=== PATIENT | male | born 1965 | race Caucasian/White ===

== ENCOUNTER 2025-09-05 23:19 | Emergency (ER) | payer OTHER ==
[2025-09-05] MEDS ORDERED: NA CHLORIDE 0.9% 1,000 ML ONE (23:32)
[2025-09-06] LABS: ALT/SGPT 38.0 U/L (16-61); AST/SGOT 32.0 U/L (15-37); Albumin 3.5 g/dL (3.4-5.0); Albumin/Globulin Ratio 0.7 (1.1-1.8); Alkaline Phosphatase 138.0 U/L (45-117); Anion Gap 14.2 mEq/L (5.0-15.0); BUN Blood Urea Nitrogen 24.0 mg/dL (7-18); Globulin 4.7 g/dL (2.3-3.5); Glucose Level 127.0 mg/dL (74-106); Lipase 18.0 U/L (13-75); Potassium 3.2 mEq/L (3.5-5.1)
[2025-09-06 00:01] LABS: Sqamous Epithelial None Seen /HPF (None Seen); Urine Culture Reflex Order REFLEXED; Urine Microscopic Reflex YN ORDER UMIC; Urine WBC Clump Occasional /HPF (None Seen)
[2025-09-06 00:02] LABS: Absolute Lymphocytes (CBC) 0.4 K/uL (0.7-4.9); Hematocrit 45.0 % (39.6-49.0); Hemoglobin 14.4 g/dL (13.6-17.9); MCH 27.9 pg (27.0-35.0); MCHC 32.1 g/dL (32.0-36.0); MCV 87.1 fL (80-100); MPV 8.7 fL (7.6-11.3); Nucleated RBC Absolute Count 0.0 (0-0); Nucleated Red Blood Cells % 0.0 % (0-0); RBC Red Blood Cell Count 5.17 M/uL (4.33-5.43); White Blood Count 18.00 thou/uL (4.3-10.9)
[2025-09-06 01:25] LABS: Blood Morphology Comment NOT SEEN (NOT SEEN); Differential Total Cells Count 100; Segmented Neutrophils 76 % (40-80)
[2025-09-06] MEDS ORDERED: NA CHLORIDE 0.9% 1,000 ML ONE (01:52)
[2025-09-06] MEDS ORDERED: CEFTRIAXONE 1000 MG/VIAL ONE (01:52)
[2025-09-06] MEDS ORDERED: KCL 20 MEQ/100 mL IVPB 100 ML IV ONE (01:52)
--- NOTE | 2025-09-06 04:53 | ER ---
Nurse's Notes [facility] Name: Vamsi Louis Age: 60 yrs Sex: Male : 1965 Arrival Date: 09/05/2025 Time: 23:19 Bed 6 Private MD: Diagnosis: Pyelonephritis acute;Acute urinary retention, agitation requiring sedation Presentation: 09/05 23:24 Chief complaint: EMS states: Pt arrived to the ED with complaints of extreme pain after kd3 pulling out his own Zamudio catheter yesterday at 0300 am. Pt is screaming in pain and is uncooperative with attempt to replace Zamudio catheter. Pt is alert and oriented x 4. Coronavirus screen: unknown. Ebola Screen: No symptoms or risks identified at this time. Initial Sepsis Screen: Does the patient meet any 2 criteria? No. Patient's initial sepsis screen is negative. Does the patient have a suspected source of infection? No. Patient's initial sepsis screen is negative. Risk Assessment: Do you want to hurt yourself or someone else? Patient reports no desire to harm self or others. Onset of symptoms was September 05, 2025. 23:24 Method Of Arrival: EMS: [facility] kd3 23:24 Acuity: BRENDA 3 kd3 Triage Assessment: 23:26 General: Appears distressed, Behavior is anxious, uncooperative. Pain: Complains of kd3 pain in suprapubic area and groin. Historical: - Allergies: 23:26 PENICILLINS; kd3 - PMHx: 23:26 BPH; Hypertensive disorder; kd3 - Immunization history:: Adult Immunizations up to date. - Infectious Disease History:: Denies. - Social history:: Smoking status: unknown. - Family history:: not pertinent. Screenin:26 [facility] ED Fall Risk Assessment (Adult) History of falling in the last 3 months, kd3 including since admission No falls in past 3 months (0 pts) Confusion or Disorientation No (0 pts) Intoxicated or Sedated No (0 pts) Impaired Gait No (0 pts) Mobility Assist Device Used No (0 pt) Altered Elimination No (0 pt) Score/Fall Risk Level 0 - 2 = Low Risk Maintained a safe environment. Abuse screen: Denies threats or abuse. Denies injuries from another. Nutritional screening: No deficits noted. Tuberculosis screening: No symptoms or risk factors identified. Assessment: 10/21 02:04 General: Appears in no apparent distress. Behavior is calm, cooperative. Neuro: Level kd3 of Consciousness is awake, alert, obeys commands, Oriented to person, place, time, situation. Cardiovascular: Capillary refill < 3 seconds Patient's skin is warm and dry. Respiratory: Airway is patent Trachea midline Respiratory effort is even, unlabored, Respiratory pattern is regular, symmetrical. 02:53 Reassessment: Patient appears in no apparent distress at this time. No changes from vc1 previously documented assessment. Patient and/or family updated on plan of care and expected duration. Pain level reassessed. Patient is alert, oriented x 3, equal unlabored respirations, skin warm/dry/pink. 04:08 Reassessment: No changes from previously documented assessment. Patient and/or family kd3 updated on plan of care and expected duration. Pain level reassessed. Patient is alert, oriented x 3, equal unlabored respirations, skin warm/dry/pink. Patient states feeling better. Patient states symptoms have improved. 04:17 General: Appears in no apparent distress. Behavior is calm, cooperative. Neuro: Level kd3 of Consciousness is awake, alert, obeys commands, Oriented to person, place, time, situation. Cardiovascular: Capillary refill < 3 seconds Patient's skin is warm and dry. Respiratory: Airway is patent Trachea midline Respiratory effort is even, unlabored, Respiratory pattern is regular, symmetrical. 04:18 General: Attempted to call pt's ride home. pt's friend did not answer. . kd3 04:35 General: This Rn spoke to pt's friend Bryce who states he will come get him. Pt was kd3 notified. . 05:17 General: Pt assisted to the vehicle with wheel chair and placed in the vehicle with his kd3 friend. . Vital Signs: 09/05 23:42 BP 149 / 88; Pulse 104; Resp 16; Temp 98.2(O); Pulse Ox 96% on R/A; kd3 09/06 02:04 BP 148 / 90; Pulse 90; Resp 16; Pulse Ox 96% on R/A; kd3 02:45 BP 153 / 99; Pulse 89; Resp 25; Pulse Ox 99% ; vc1 04:08 BP 185 / 112; Pulse 86; Resp 20; Pulse Ox 95% on R/A; kd3 04:17 BP 174 / 108; Pulse 85; Resp 16; Pulse Ox 99% on R/A; kd3 04:59 BP 169 / 100; Pulse 89; Resp 19; Pulse Ox 98% on R/A; kd3 ED Course: 09/05 23:21 Patient arrived in ED. rv1 23:22 Chance Vila MD is Attending Physician. sp4 23:24 Cayla Boone, ERIC is Primary Nurse. kd3 23:26 Triage completed. kd3 23:26 Arm band placed on right wrist. kd3 23:30 No provider procedures requiring assistance completed. Inserted saline lock: 18 gauge kd3 in left forearm, using aseptic technique. Blood collected. Flushed with 10 mL NS. 23:31 CBC with Diff Sent. kd3 23:31 CMP Sent. kd3 23:31 Lipase Sent. kd3 23:41 CBC with Diff Sent. kd3 23:41 CMP Sent. kd3 23:41 Lipase Sent. kd3 23:44 Patient has correct armband on for positive identification. Provided Education on: kd3 Zamudio . 09/06 04:52 Tobin Rodgers MD is Referral Physician. sp4 05:18 IV discontinued, intact, bleeding controlled, No redness/swelling at site. Pressure kd3 dressing applied. Administered Medications: 09/05 23:24 Drug: LORazepam IM 4 mg IM once Route: IM; Site: left ventrogluteal; kd3 23:31 Drug: Geodon IM 40 mg IM once Route: IM; Site: right vastus lateralis; kd3 23:41 Drug: NS 0.9% IV 1000 ml IV at 1000 ml once; to be given as a bolus over 60 minutes kd3 Route: IV; Rate: 1000 ml; Site: left forearm; 09/06 02:03 Drug: Rocephin - Rocephin (cefTRIAXone) IVPB 1 grams IVPB once over 30 mins; (mix in 50 kd3 mL NS) Route: IVPB; Infused Over: 30 mins; Site: left forearm; 02:03 Drug: NS 0.9% IV 1000 ml IV at 1000 ml once; to be given as a bolus over 60 minutes kd3 Route: IV; Rate: 1000 ml; Site: left forearm; 02:03 Drug: Potassium Chloride IV 20 mEq IV at calculated rate once; administer over 1-2 kd3 hours Route: IV; Rate: calculated rate; Site: left forearm; Medication: 09/05 23:27 VIS not applicable for this client. kd3 Outcome: 09/06 04:53 Discharge ordered by . sp4 05:18 Discharged to home via wheelchair, kd3 05:18 Condition: stable 05:18 Discharge instructions given to patient, friend, Instructed on discharge instructions, follow up and referral plans. medication usage, Demonstrated understanding of instructions, follow-up care, medications, Prescriptions given X 1, 05:18 Patient left the ED. kd3 Signatures: Cayla Boone RN RN kd3 Eirka Orellana RN RN vc1 Luzmaria Painter1 Chance Vila MD MD sp4
--- NOTE | 2025-09-06 04:53 | EDPHYS ---
Physician Documentation [facility] Name: Vamsi Louis Age: 60 yrs Sex: Male : 1965 Arrival Date: 09/05/2025 Time: 23:19 Bed 6 Private MD: ED Physician Chance Vila HPI: 09/05 23:22 This 60 yrs old Male presents to ER via Unassigned with complaints of sp4 agitation . 09/06 20:16 60-year-old male presents with complaint of agitation. Patient reports severe pain in sp4 his bladder. EMS states patient pulled his catheter out yesterday and then developed severe pain in the bladder causing agitation and discomfort. Patient uncooperative on arrival writhing around in pain not allowing physical examination or Zamudio catheter placement. Patient had to be given Ativan and Geodon on arrival to assist with moderate to severe agitation and uncooperative behavior.. Historical: - Allergies: 09/05 23:26 PENICILLINS; kd3 - PMHx: 23:26 BPH; Hypertensive disorder; kd3 - Immunization history:: Adult Immunizations up to date. - Infectious Disease History:: Denies. - Social history:: Smoking status: unknown. - Family history:: not pertinent. ROS: 09/06 20:16 Constitutional: Negative for fever, chills, and weight loss . Positive for bladder sp4 pain and positive for agitation and restlessness. All other systems are negative, Exam: 20:16 Constitutional: Thin appearing male, moderate to severe agitation, screaming at the sp4 top of his lungs, writhing around in pain, uncooperative with exam or treatment Head/Face: Normocephalic, atraumatic. Eyes: Pupils equal round and reactive to light, extra-ocular motions intact. Lids and lashes normal. Conjunctiva and sclera are not injected. Cornea within normal limits. Periorbital areas with no swelling, redness, or edema. ENT: Nares patent. No nasal discharge, no septal abnormalities noted. Tympanic membranes are normal and external auditory canals are clear. Oropharynx with no redness, swelling, or masses, exudates, or evidence of obstruction, uvula midline. Mucous membranes moist. Neck: Trachea midline, no thyromegaly or masses palpated, and no cervical lymphadenopathy. Supple, full range of motion without nuchal rigidity, or vertebral point tenderness. Chest/axilla: Normal chest wall appearance and motion. Nontender with no deformity. No lesions are appreciated. Cardiovascular: Regular rate and rhythm , intact peripheral pulse Respiratory: Lungs have equal breath sounds bilaterally, Abdomen/GI: Soft, with normal bowel sounds. No distension or tympany. No guarding or rebound. No evidence of tenderness throughout. Back: No spinal tenderness. No costovertebral tenderness. Male : Normal genitalia with no discharge or lesions. Patient is circumcised male, no signs of bleeding from urethra. Skin: Warm, dry with normal turgor. Normal color with no rashes, no lesions, and no evidence of cellulitis. MS/ Extremity: Pulses equal, no cyanosis. Neurovascular intact. Full, normal range of motion. Neuro: Awake and alert, highly agitated and restless, screaming in pain, not able to cooperate, grossly no lateralizing deficits Vital Signs: 09/05 23:42 BP 149 / 88; Pulse 104; Resp 16; Temp 98.2(O); Pulse Ox 96% on R/A; kd3 09/06 02:04 BP 148 / 90; Pulse 90; Resp 16; Pulse Ox 96% on R/A; kd3 02:45 BP 153 / 99; Pulse 89; Resp 25; Pulse Ox 99% ; vc1 04:08 BP 185 / 112; Pulse 86; Resp 20; Pulse Ox 95% on R/A; kd3 04:17 BP 174 / 108; Pulse 85; Resp 16; Pulse Ox 99% on R/A; kd3 04:59 BP 169 / 100; Pulse 89; Resp 19; Pulse Ox 98% on R/A; kd3 Procedures: 20:16 Zamudio cath inserted by myself - 18 Fr. Urine output = 1000 ml's. Patient tolerated sp4 well. Zamudio catheter was placed by me personally after patient was given Geodon and Ativan for severe agitation. . MDM: 09/05 23:24 Medical Screening Exam initiated sp4 09/06 20:21 Differential diagnosis: nonspecific abdominal pain, UTI, urinary retention, Zamudio sp4 catheter problem, prostatitis, urethritis. Data reviewed: vital signs, nurses notes, lab test result(s), CBC, electrolytes, hepatic panel. 20:21 ED course: Patient had to be sedated for moderate to severe agitation uncooperative sp4 behavior. Patient was given total of 40 mg IM Geodon and 4 mg of IM lorazepam. Critical care billed secondary to the monitoring after sedation for severe agitation and uncooperative behavior. After agitation improved patient was discharged in improved condition.. 09/05 23:23 Order name: UA Rfx Aj Cult if indicated; Complete Time: 01:48 sp4 09/05 23:23 Order name: CBC with Diff; Complete Time: 01:48 sp4 09/05 23:23 Order name: CMP; Complete Time: 01:48 sp4 09/05 23:23 Order name: Lipase; Complete Time: 01:48 sp4 09/06 00:06 Order name: Urine Culture EDMS 09/06 00:08 Order name: Manual Differential; Complete Time: 01:48 EDMS 09/05 23:23 Order name: Zamudio; Complete Time: 23:31 sp4 09/05 23:23 Order name: IV Saline Lock; Complete Time: 23:31 sp4 09/05 23:23 Order name: Labs collected and sent; Complete Time: 23:31 sp4 09/06 01:48 Order name: Leg Bag; Complete Time: 04:34 sp4 Administered Medications: 09/05 23:24 Drug: LORazepam IM 4 mg IM once Route: IM; Site: left ventrogluteal; kd3 23:31 Drug: Geodon IM 40 mg IM once Route: IM; Site: right vastus lateralis; kd3 23:41 Drug: NS 0.9% IV 1000 ml IV at 1000 ml once; to be given as a bolus over 60 minutes kd3 Route: IV; Rate: 1000 ml; Site: left forearm; 09/06 02:03 Drug: Rocephin - Rocephin (cefTRIAXone) IVPB 1 grams IVPB once over 30 mins; (mix in 50 kd3 mL NS) Route: IVPB; Infused Over: 30 mins; Site: left forearm; 02:03 Drug: NS 0.9% IV 1000 ml IV at 1000 ml once; to be given as a bolus over 60 minutes kd3 Route: IV; Rate: 1000 ml; Site: left forearm; 02:03 Drug: Potassium Chloride IV 20 mEq IV at calculated rate once; administer over 1-2 kd3 hours Route: IV; Rate: calculated rate; Site: left forearm; Disposition: 20:21 Chart complete. sp4 Disposition Summary: 09/06/25 04:53 Discharge Ordered Notes: Location: Home sp4 Problem: new sp4 Symptoms: have improved sp4 Condition: Stable sp4 Diagnosis - Pyelonephritis acute sp4 - Acute urinary retention, agitation requiring sedation sp4 Followup: sp4 - With: Tobin Rodgers MD - When: 7 - 10 days - Reason: Recheck today's complaints Discharge Instructions: - Discharge Summary Sheet sp4 - Pyelonephritis, Adult, [id number] sp4 Forms: - Patient Portal Instructions sp4 Prescriptions: - cefdinir 300 mg Oral capsule - take 1 capsule ORAL route every 12 hours for 10 days; 20 capsule; Refills: 0, sp4 Product Selection Permitted - Pyridium 200 mg Oral Tablet - take 1 tablet ORAL route every 8 hours for 3 days; 9 tablet; Refills: 0, sp4 Product Selection Permitted Critical care time excluding procedures: 20:21 Critical care time: Bedside Care: 36 minutes, Consultation: 12 minutes, Family sp4 Intervention: 12 minutes. Total time: 60 minutes Signatures: Dispatcher [employer] Cayla Lew RN RN kd3 Chance Vila MD MD sp4
[2025-09-06 11:40] VITALS: TEMP 98.2
[2025-09-06 11:47] VITALS: BP 169/100; O2SAT 98
== END 2025-09-06 05:18 | disposition home or self-care (01) ==
LOC: ER 23:19
DX: N10 Acute pyelonephritis (principal); R45.1 Restlessness and agitation
CPT/HCPCS: 87088; 85025; 81001; 87086; 36415; 83690; 80053; 51702; 96375; 96372; 96374; 99284; J3480; J7030 ×2; J0696

== ENCOUNTER 2025-09-16 16:00 | Emergency (ER) | payer OTHER ==
--- NOTE | 2025-09-16 16:27 | ER ---
Nurse's Notes [facility] Name: Vamsi Louis Age: 60 yrs Sex: Male : 1965 Arrival Date: 09/16/2025 Time: 16:00 Bed 19 Private MD: Diagnosis: Mechanical complication of urinary (indwelling) catheter Presentation: 09/16 16:00 Chief complaint: Patient states: C/O lower abdominal/penile pain. patient states that ar8 his rudd fell out at 1030 due to balloon deflating, he has not voided since then. 16:00 Coronavirus screen: At this time, the client does not indicate any symptoms associated ar8 with coronavirus-19. Ebola Screen: No symptoms or risks identified at this time. Initial Sepsis Screen: Does the patient meet any 2 criteria? No. Patient's initial sepsis screen is negative. Does the patient have a suspected source of infection? No. Patient's initial sepsis screen is negative. Risk Assessment: Do you want to hurt yourself or someone else? Patient reports no desire to harm self or others. Onset of symptoms was September 16, 2025. 16:00 Method Of Arrival: EMS: [facility] ar8 16:00 Acuity: BRENDA 4 ar8 Triage Assessment: 16:05 General: Appears uncomfortable, Behavior is cooperative, restless. Pain: Complains of ar8 pain in suprapubic area and groin Pain currently is 10 out of 10 on a pain scale. Neuro: Level of Consciousness is awake, alert, obeys commands, Oriented to person, place, time, situation. Cardiovascular: Patient's skin is warm and dry. Respiratory: Airway is patent Respiratory effort is even, unlabored, Respiratory pattern is regular, symmetrical. GI: No signs and/or symptoms were reported involving the gastrointestinal system. : Reports inability to void, since 1030 pain in suprapubic area. Derm: No signs and/or symptoms reported regarding the dermatologic system. Historical: - Allergies: 16:05 PENICILLINS; ar8 - PMHx: 16:05 BPH; Hypertensive disorder; ar8 - Immunization history:: Adult Immunizations up to date. - Infectious Disease History:: Denies. - Social history:: Smoking status: Patient reports the use of cigarette tobacco products, smokes one-half pack cigarettes per day. Screenin:07 [facility] ED Fall Risk Assessment (Adult) History of falling in the last 3 months, ar8 including since admission No falls in past 3 months (0 pts) Confusion or Disorientation No (0 pts) Intoxicated or Sedated No (0 pts) Impaired Gait No (0 pts) Mobility Assist Device Used No (0 pt) Altered Elimination No (0 pt) Score/Fall Risk Level 0 - 2 = Low Risk Oriented to surroundings, Maintained a safe environment. Abuse screen: Denies threats or abuse. Nutritional screening: No deficits noted. Tuberculosis screening: No symptoms or risk factors identified. Assessment: 16:07 Reassessment: See triage assessment. ar8 Vital Signs: 16:00 BP 168 / 90; Pulse 90; Resp 20; Temp 98; Pulse Ox 98% on R/A; Weight 68.04 kg; Height 6 ar8 ft. 0 in. ; Pain 10/10; 16:25 BP 134 / 81; Pulse 87; Resp 20; Pulse Ox 100% ; Pain 1/10; ar8 16:00 Body Mass Index 20.34 (68.04 kg, 182.88 cm) ar8 16:00 Pain Scale: Adult ar8 16:25 Pain Scale: Adult ar8 ED Course: 16:00 Bed in low position. Call light in reach. Side rails up X2. ar8 16:00 Provided Education on: plan of care. Pulse ox on. NIBP on. ar8 16:00 No provider procedures requiring assistance completed. ar8 16:03 Patient arrived in ED. ar8 16:03 Tad Gill, RN is Primary Nurse. ar8 16:05 Triage completed. ar8 16:05 Mike Ely FNP-C is PHCP. dr5 16:05 Bro Bill MD is Attending Physician. dr5 16:05 Arm band placed on right wrist. ar8 16:20 Bladder scan completed. Bladder scan performed by ERP. \R\650ml. ar8 16:23 Rudd cath inserted, using sterile technique, [address], balloon inflated, to ar8 gravity drainage, urine specimen collected. Patient tolerated well. 16:24 UA Rfx Aj Cult if indicated Sent. ar8 16:38 Patient did not have IV access during this emergency room visit. ar8 Administered Medications: No medications were administered Medication: 16:07 VIS not applicable for this client. ar8 Intake: 16:38 PO: 0ml; Total: 0ml. ar8 Output: 16:38 Urine: 700ml (Rudd); Total: 700ml. ar8 Outcome: 16:27 Discharge ordered by . dr5 16:38 Discharged to home ambulatory, ar8 16:38 Condition: stable 16:38 Discharge instructions given to patient, Instructed on discharge instructions, follow up and referral plans. Demonstrated understanding of instructions, follow-up care, 16:39 Patient left the ED. ar8 Signatures: Mike Ely, ACCOUNT GENERAL MANAGER-C ACCOUNT GENERAL MANAGER-Cdr5 Tad Gill, RN RN ar8
--- NOTE | 2025-09-16 16:27 | EDPHYS ---
Physician Documentation [facility] Name: Vamsi Louis Age: 60 yrs Sex: Male : 1965 Arrival Date: 09/16/2025 Time: 16:00 Bed 19 Private MD: ED Physician Bro Bill HPI: 09/16 16:16 This 60 yrs old Male presents to ER via EMS with complaints of urinary dr5 retention. 16:16 Onset: The symptoms/episode began/occurred acutely. Patient is a 60-year-old male with dr5 BPH and hypertension with a chronic Zamudio for enlarged prostate coming in with urinary retention after Zamudio catheter balloon mechanically deflated and Zamudio was removed and patient hasn't been able to void. Patient reports he called multiple medical supply stores and did not have extra Zamudio bag. Patient denies back pain, fever, testicular pain, penile pain. Historical: - Allergies: 16:05 PENICILLINS; ar8 - PMHx: 16:05 BPH; Hypertensive disorder; ar8 - Immunization history:: Adult Immunizations up to date. - Infectious Disease History:: Denies. - Social history:: Smoking status: Patient reports the use of cigarette tobacco products, smokes one-half pack cigarettes per day. ROS: 16:16 Constitutional: as per hpi dr5 Exam: 16:16 Constitutional: This is a well developed, well nourished patient who is awake, alert, dr5 and in no acute distress. Head/Face: Normocephalic, atraumatic. Eyes: Pupils equal round and reactive to light, extra-ocular motions intact. Lids and lashes normal. Conjunctiva and sclera are non-icteric and not injected. Cornea within normal limits. Periorbital areas with no swelling, redness, or edema. ENT: Nares patent. No nasal discharge, no septal abnormalities noted. Tympanic membranes are normal and external auditory canals are clear. Oropharynx with no redness, swelling, or masses, exudates, or evidence of obstruction, uvula midline. Mucous membranes moist. Chest/axilla: Normal chest wall appearance and motion. Nontender with no deformity. No lesions are appreciated. Cardiovascular: Regular rate and rhythm with a normal S1 and S2. Normal PMI, no JVD. No pulse deficits. Respiratory: Lungs have equal breath sounds bilaterally, clear to auscultation. No rales, rhonchi or wheezes noted. No increased work of breathing, no retractions or nasal flaring. Back: No spinal tenderness. No costovertebral tenderness. Full range of motion. Skin: Warm, dry with normal turgor. Normal color with no rashes, no lesions, and no evidence of cellulitis. MS/ Extremity: Pulses equal, no cyanosis. Neurovascular intact. Full, normal range of motion. Neuro: Awake and alert, GCS 15, oriented to person, place, time, and situation. Cranial nerves II-XII grossly intact. Motor strength 5/5 in all extremities. Sensory grossly intact. Cerebellar exam normal. Normal gait. 16:16 Abdomen/GI: Inspection: distension, that is moderate, in the suprapubic area, Palpation: severe abdominal tenderness, in the suprapubic area, Vital Signs: 16:00 BP 168 / 90; Pulse 90; Resp 20; Temp 98; Pulse Ox 98% on R/A; Weight 68.04 kg; Height 6 ar8 ft. 0 in. ; Pain 10/10; 16:25 BP 134 / 81; Pulse 87; Resp 20; Pulse Ox 100% ; Pain 1/10; ar8 16:00 Body Mass Index 20.34 (68.04 kg, 182.88 cm) ar8 16:00 Pain Scale: Adult ar8 16:25 Pain Scale: Adult ar8 Procedures: 16:14 Ultrasound: performed by the emergency department physician, Bladder Scanner showed dr5 approximately 700cc . MDM: 16:05 Medical Screening Exam initiated dr5 16:30 Differential Diagnosis UTI, mechanical malfunction of Zamudio catheter, BPH. Data dr5 reviewed: vital signs, nurses notes, lab test result(s), urinalysis. Consideration of Admission/Observation Escalation of care including admission/observation considered. Escalation considered patient found to be febrile, CVA tenderness, or UTI. I considered the following discharge prescriptions or medication management in the emergency department I discussed and recommended Over The Counter medications, Medications were administered in the Emergency Department. See MAR. Care significantly affected by the following chronic conditions: BPH, hypertension. Care significantly affected by the following Social Determinants of Health: Poor access to healthcare and/or lack of insurance, Poor access to transportation, Problems related to employment. Counseling: I had a detailed discussion with the patient and/or guardian regarding the historical points, exam findings, and any diagnostic results supporting the discharge/admit diagnosis, the presence of at least one elevated blood pressure reading (>120/80) during this emergency department visit, lab results, the need for outpatient follow up, for definitive care, a family practitioner, to return to the emergency department if symptoms worsen or persist or if there are any questions or concerns that arise at home. Special discussion: I discussed with the patient/guardian in detail that at this point there is no indication for admission to the hospital. It is understood, however, that if the symptoms persist or worsen the patient needs to return immediately for re-evaluation. Based on the history and exam findings, there is no indication for further emergent testing or inpatient evaluation. I discussed with the patient/guardian the need to see the primary care provider for further evaluation of the symptoms. ED course: Zamudio catheter replaced with clear urine return approximately 700 mL and resolution of abdominal pain. Reassessment of abdominal exam revealed nondistended and nontender abdomen. UA Normal. All questions answered. Stricter precautions given. 09/16 16:13 Order name: UA Rfx Aj Cult if indicated; Complete Time: 16:29 dr5 09/16 16:13 Order name: Zamudio; Complete Time: 16:24 dr5 09/16 16:13 Order name: Bladder Scanner; Complete Time: 16:24 dr5 Administered Medications: No medications were administered Disposition: 17:11 Co-signature as Attending Physician, Bro Bill MD I reviewed the patient's care rn provided by the Advanced Practice Provider and agree with the diagnosis and treatment plan. Disposition Summary: 09/16/25 16:27 Discharge Ordered Notes: Location: Home dr5 Condition: Stable dr5 Diagnosis - Mechanical complication of urinary (indwelling) catheter dr5 Followup: dr5 - With: Emergency Department - When: As needed - Reason: Worsening of condition Followup: dr5 - With: Private Physician - When: 1 - 2 days - Reason: Recheck today's complaints, Continuance of care, Re-evaluation by your physician Discharge Instructions: - Discharge Summary Sheet dr5 - Indwelling Urinary Catheter Insertion, Care After dr5 Forms: - Medication Reconciliation Form dr5 - Antibiotic Education dr5 - Patient Portal Instructions dr5 - Leadership Thank You Letter dr5 Signatures: Dispatcher [employer] Bro Rhodes MD MD rn Rhodes, Dustin, RN LABOR DELIVERY-C RN LABOR DELIVERY-Cdr5 Tad Gill RN RN ar8 Corrections: (The following items were deleted from the chart) 16:14 16:14 UA Rfx Aj Cult if indicated+[email or web address].BRZ ordered. EDMS EDMS
[2025-09-16 16:28] LABS: Urine Microscopic Reflex YN NO UMIC
[2025-09-16 16:43] VITALS: TEMP 98
[2025-09-16 16:44] VITALS: BP 134/81; O2SAT 100
== END 2025-09-16 16:39 | disposition home or self-care (01) ==
LOC: ER 16:00
DX: T83.098A Other mechanical complication of other urinary catheter, initial encounter (principal); F17.210 Nicotine dependence, cigarettes, uncomplicated
CPT/HCPCS: 51702; 81003; 99284